=== PATIENT | male | born 1990 | race Caucasian/White ===

== ENCOUNTER → 2023-08-02 | Emergency (ER) | payer OTHER ==
[~2023-08-02] VITALS: Ht 172.7 cm; Wt 79.4 kg
[2023-08-02 09:22] VITALS: BP 126/88; TEMP 98.2; O2SAT 97
== END ==
LOC: ER 09:25
DX: T65.891A Toxic effect of other specified substances, accidental (unintentional), initial encounter (principal); Y92.89 Other specified places as the place of occurrence of the external cause